=== PATIENT | male | born 1990 | race African-American/Black ===

== ENCOUNTER 2024-06-18 11:19 | Inpatient (IN) | payer MEDICAID, OTHER ==
[~2024-06-18] VITALS: Ht 182.9 cm; Wt 68.0 kg
[2024-06-18 11:39] VITALS: BP 155/108; PULSE 91; RESP 20; TEMP 98; O2SAT 97
[2024-06-18] MEDS: ONDANSETRON 4 MG/2 ML VIAL IVP ONE (12:24)
[2024-06-18] MEDS: KETOROLAC 30 MG/ML VIAL IVP ONE (12:25)
[2024-06-18] MEDS: NACL 0.9% 1,000 ML IV SCH ×2 (12:26→17:07)
[2024-06-18 12:28] LABS: BASOPHILS % (AUTO) 0.5 % (0.0-2.0); EOSINOPHILS # (AUTO) 0.2 K/uL (0-0.4); EOSINOPHILS % (AUTO) 3.4 % (0.0-4.0); HEMOGLOBIN 12.6 g/dL (12.0-18.0); LYMPHOCYTES # (AUTO) 0.7 K/uL (2.0-11.5); LYMPHOCYTES % (AUTO) 13.2 % (20.5-51.1); MEAN CORPUSCULAR HEMOGLOBIN 39 pg (27-31); MEAN CORPUSCULAR HGB CONC 34 g/dL (33-37); MEAN CORPUSCULAR VOLUME 114.6 fL (80-94); MONOCYTES # (AUTO) 0.6 K/uL (0.8-1.0); MONOCYTES % (AUTO) 12.8 % (1.7-9.3); NEUTROPHILS # (AUTO) 3.5 K/uL (1.8-7.7); NEUTROPHILS % (AUTO) 70.1 % (42.2-75.2); PLATELET COUNT (AUTO) 148 K/uL (140-450); RED BLOOD CELL COUNT(AUTO) 3.23 MIL/uL (4.20-6.10); RED CELL DISTRIBUTION WIDTH 16.1 % (11.6-13.7)
[2024-06-18 12:37] LABS: ANION GAP 13.3 (8-16); CALCIUM 9.5 mg/dL (8.5-10.1); CARBON DIOXIDE 30.1 mmol/L (21-32); CREATININE 0.8 mg/dL (0.6-1.3); POTASSIUM 3.4 mmol/L (3.5-5.1)
[2024-06-18 12:39] LABS: APPEARANCE,URINE CLEAR (CLEAR); BILIRUBIN,URINE NEGATIVE (NEGATIVE); BLOOD, URINE NEGATIVE (NEGATIVE); COLOR,URINE YELLOW (YELLOW); LEUKOCYTE ESTERASE ,URINE NEGATIVE (NEGATIVE); NITRITE, URINE NEGATIVE (NEGATIVE); PROTEIN,URINE NEGATIVE (NEGATIVE); UGLUCOSE NEGATIVE (NEGATIVE); UROBILINOGEN,URINE 0.2 EU/dL (0.2 - 1)
[2024-06-18 12:52] LABS: ALBUMIN 3.8 g/dL (3.4-5.0); BILIRUBIN,DIRECT 0.2 mg/dL (0.0-0.3); TOTAL BILIRUBIN 0.6 mg/dL (0.0-1.0); TOTAL PROTEIN, SERUM 7.5 g/dL (6.4-8.2)
[2024-06-18] MEDS: MORPHINE SULFATE 4 MG/ML SYR IVP ONE (15:13)
[2024-06-18] MEDS ORDERED: ONDANSETRON 4 MG/2 ML VIAL IVP PRN (15:30)
[2024-06-18] MEDS ORDERED: ZOLPIDEM 5 MG TAB PO PRN (15:30)
[2024-06-18 18:44] VITALS: RESP 15
[2024-06-18 20:00] VITALS: BP_SYST 140; BP_SYST 170; BP_DIAS 77; PULSE 84; RESP 18; TEMP 98; O2SAT 97
[2024-06-18 20:52] LABS: AMPHETAMINE, URINE NEGATIVE ng/ml (NEG <=1000); BARBITURATE, URINE NEGATIVE ng/ml (NEG <=200); BENZODIAZEPINE, URINE NEGATIVE ng/mL (NEG <=200); CANNABINOID, URINE POSITIVE ng/mL (NEG <=50); COCAINE, URINE NEGATIVE ng/mL (NEG <=300); OPIATE, URINE NEGATIVE ng/mL (NEG <=2000); PHENCYCLIDINE SCREEN,URINE NEGATIVE ng/mL (NEG <=25)
[2024-06-18 22:22] LABS: CHOL/HDL RATIO 2.8 (1-4.5)
[2024-06-18] MEDS: POTASSIUM CHLORIDE 10 MEQ TABER PO ONE (22:48)
[2024-06-19 00:30] VITALS: BP 142/72; PULSE 88; RESP 18; TEMP 98; O2SAT 97
[2024-06-19] MEDS: MORPHINE SULFATE 2 MG/ML SYR IVP PRN (01:29)
[2024-06-19 07:42] LABS: BASOPHILS # (AUTO) 0.1 K/uL (0.00-0.22); BASOPHILS % (AUTO) 1.6 % (0.0-2.0); EOSINOPHILS # (AUTO) 0.2 K/uL (0-0.4); HEMATOCRIT 32.1 % (36-52); HEMOGLOBIN 11.1 g/dL (12.0-18.0); LYMPHOCYTES # (AUTO) 0.9 K/uL (2.0-11.5); LYMPHOCYTES % (AUTO) 22.5 % (20.5-51.1); MEAN CORPUSCULAR HEMOGLOBIN 40 pg (27-31); MEAN CORPUSCULAR HGB CONC 35 g/dL (33-37); MEAN CORPUSCULAR VOLUME 116.4 fL (80-94); MONOCYTES # (AUTO) 0.6 K/uL (0.8-1.0); MONOCYTES % (AUTO) 15.3 % (1.7-9.3); NEUTROPHILS # (AUTO) 2.3 K/uL (1.8-7.7); NEUTROPHILS % (AUTO) 56.6 % (42.2-75.2); PLATELET COUNT (AUTO) 133 K/uL (140-450); RED BLOOD CELL COUNT(AUTO) 2.76 MIL/uL (4.20-6.10); RED CELL DISTRIBUTION WIDTH 16.2 % (11.6-13.7); WHITE BLOOD COUNT (AUTO) 4.1 K/uL (4.8-10.8)
[2024-06-19 08:00] VITALS: BP 155/155; PULSE 81; PULSE 88; RESP 18; TEMP 98; O2SAT 97
[2024-06-19 09:00] LABS: ALBUMIN 3.1 g/dL (3.4-5.0); ANION GAP 14.2 (8-16); CALCIUM 8.9 mg/dL (8.5-10.1); CARBON DIOXIDE 25.6 mmol/L (21-32); CREATININE 0.7 mg/dL (0.6-1.3); MAGNESIUM 1.5 mg/dL (1.8-2.4); PHOSPHORUS 3.9 mg/dL (2.5-4.9); POTASSIUM 3.8 mmol/L (3.5-5.1); TOTAL BILIRUBIN 0.5 mg/dL (0.0-1.0); TOTAL PROTEIN, SERUM 6.5 g/dL (6.4-8.2)
[2024-06-19] MEDS: PANTOPRAZOLE 40 MG INJ VIAL IVP SCH (10:28)
[2024-06-19] MEDS: THIAMINE 100 MG TAB PO SCH (10:29)
[2024-06-19] MEDS: amLODIPine 5 MG TAB PO SCH (10:29)
[2024-06-19] MEDS: FOLIC ACID 1 MG TAB PO SCH (10:29)
[2024-06-19] MEDS: MULTIVITAMIN 1 TAB PO SCH (10:30)
[2024-06-19 12:00] VITALS: PULSE 20; RESP 18; TEMP 97; O2SAT 98
[2024-06-19] MEDS ORDERED: THIA-34 PO (13:40)
[2024-06-19] MEDS ORDERED: FOLI1TAB90 PO (13:40)
[2024-06-19] MEDS ORDERED: AMLO-3 PO (13:40)
[2024-06-19 15:42] VITALS: BP 145/81; PULSE 75; RESP 16; TEMP 97.9
== END 2024-06-19 15:55 | disposition home or self-care (01) | DRG 282 ==
LOC: MED 11:19 → MMU 15:30 → MTU 15:56
PROVIDERS: ADMIT Student in an Organized Health Care Education/Training Program; ATTEND Student in an Organized Health Care Education/Training Program
DX: K85.90 Acute pancreatitis without necrosis or infection, unspecified (principal); E44.1 Mild protein-calorie malnutrition; E87.6 Hypokalemia; I10 Essential (primary) hypertension; F10.10 Alcohol abuse, uncomplicated; J45.909 Unspecified asthma, uncomplicated
CPT/HCPCS: 36415; 71045; 74150; 80048; 80053; 80076; 80305; 81003; 83690; 83735; 84100; 85025; 87081; 96361; 96374; 96375; 99285; J1885; J2270; J2405; J2470